=== PATIENT | male | born 1970 | race African-American/Black ===

== ENCOUNTER 2016-08-22 12:00 | Emergency (ER) | payer BC ==
[2016-08-22 12:44] LABS: BASOPHILS 0.8 %; BASOPHILS ABSOLUTE 0.08 10/3/uL (0.0-0.16); EOSINOPHILS 6.3 %; EOSINOPHILS ABSOLUTE 0.61 10/3/uL (0.0-0.53); ER CBC TAT 0 Hrs 09 Mins; IMMATURE GRANULOCYTES 0.2 %; IMMATURE GRANULOCYTES ABSOLUTE 0.02 10/3/uL (0.0-0.11); LYMPHOCYTES 25.7 %; LYMPHOCYTES ABSOLUTE 2.51 10/3/uL (0.67-4.30); MONOCYTES 10.2 %; NEUTROPHILS 56.8 %; NEUTROPHILS ABSOLUTE 5.54 10/3/uL (2.02-8.40); RED CELL COUNT 5.17 10/6/uL (4.7-6.1); WHITE BLOOD CELLS 9.8 10/3/uL (4.5-10.5)
[2016-08-22 12:45] LABS: HEMATOCRIT 31.2 % (40.0-51.0); HEMOGLOBIN 9.5 g/dL (13.6-17.8); MANUAL DIFF NO %; MEAN CORPUS HGB CONC 30.4 g/dL (32.0-36.0); MEAN CORPUSCULAR HEMOGLOB 18.4 pg (26.0-34.0); MEAN CORPUSCULAR VOLUME 60.3 fL (80-100); PLATELET COUNT 417 10/3/uL (150-400); RBC DISTRIBUTION WIDTH 20.2 % (12.0-16.0)
[2016-08-22 12:57] LABS: A/G RATIO 0.5 (0.7-1.9); ALBUMIN 2.9 G/DL (3.5-5.0); ALKALINE PHOSPHATASE 94 U/L (45-117); BUN (BLOOD UREA NITROGEN) 10 MG/DL (6-23); CALCIUM, SERUM 9.3 MG/DL (8.5-10.4); CHLORIDE, SERUM 105 MMOL/L (96-112); CO2 (CARBON DIOXIDE) 27 MMOL/L (24-34); CREATININE 0.87 MG/DL (0.70-1.30); GFR AFRICAN AMERICAN 119 ML/MIN (>=60); GFR NON AFRICAN AMERICAN 103 ML/MIN (>=60); GLUCOSE, SERUM 83 MG/DL (60-99); SGOT(AST) 10 U/L (5-40); SGPT(ALT) 9 U/L (5-65); SODIUM, SERUM 139 MMOL/L (135-148); TOTAL BILIRUBIN 0.8 MG/DL (0-1.2); TOTAL PROTEIN 9.3 G/DL (6.0-8.5)
[2016-08-22 12:58] LABS: GLOBULIN 6.4 G/DL (2.5-4.1)
[2016-08-22 12:59] LABS: ANISOCYTOSIS 1+ (5-10/OIF) (0-5/OIF); MICROCYTES 4+ (>50/OIF) (0-5/OIF); PLATELET ESTIMATE SLT INC (ADEQUATE); POLYCHROMASIA 1+ (2-5/OIF) (0-1/OIF)
[2016-08-22 13:44] LABS: INTERNATIONAL NORMAL RATI 1.4 UNITS (-); PROTIME (NOT ORD) 16.7 SEC (12.0-14.5)
[2016-08-22 13:45] LABS: PARTIAL THROMBO TIME 44.9 SEC (22.5-37.2)
[2016-08-22 13:48] LABS: TROPONIN I <0.02 NG/ML (<0.05)
== END 2016-08-22 15:03 | disposition home or self-care (01) ==
LOC: ER 12:00
PROVIDERS: Hospitalist; Physician Assistant
DX: T14.8 Other injury of unspecified body region (principal); X58.XXXA Exposure to other specified factors, initial encounter
CPT/HCPCS: 70450; 71010; 80053; 82962; 84484; 85025; 85610; 85730; 93005; 99285